=== PATIENT | female | born 1980 | race Caucasian/White ===

== ENCOUNTER 2018-05-14 06:25 | Inpatient (IN) | payer BC, OTHER ==
[2018-05-14] MEDS: DEXTROSE 5%-LACTATED RINGERS 1,000 ML IV SCH (06:45)
[2018-05-14 07:25] VITALS: BMI 34.0
[2018-05-14] MEDS ORDERED: OXYTOCIN 20 UNITS in 0.9% NS 40 UNIT/2,000 ML INFUS.BAG IV ONE (07:42)
[2018-05-14] MEDS ORDERED: morphine SULFATE/Preservative Free 0.5 MG/ML (1cc Syringe) ONE (07:46)
[2018-05-14] MEDS ORDERED: DEXAMETHASONE SOD PHOSPHATE 4 MG/1 ML VIAL ONE (07:46)
[2018-05-14] MEDS ORDERED: ePHEDrine SULFATE 50 MG/1 ML AMPULE ONE (07:46)
[2018-05-14] MEDS ORDERED: BUPIVACAINE 0.75% IN DEXTROSE/PF 2ML AMPULE NR ONE (08:05)
[2018-05-14] MEDS ORDERED: OXYTOCIN 10 UNITS/ML VIAL ONE (08:22)
[2018-05-14] MEDS ORDERED: IBUPROFEN 800 MG/8 ML IJ IVPB PRN ×2 (09:51→09:52)
[2018-05-14] MEDS ORDERED: ONDANSETRON 4 MG/2 ML VIAL IVPUSH PRN (09:51)
[2018-05-14] MEDS ORDERED: WITCH HAZEL 50% (TUCKS) 40 PAD/JAR PAD TP PRN (09:51)
[2018-05-14] MEDS ORDERED: METHYLERGONOVINE MALEATE 0.2 MG/1 ML AMP IM PRN (09:51)
[2018-05-14] MEDS ORDERED: ACETAMINOPHEN 1000 MG/100 ML VIAL (NON FORMULARY) IVPB PRN (09:52)
[2018-05-14] MEDS ORDERED: CITRIC ACID/SODIUM CITRATE 30 ML UNIT-DOSE CUP PO ONE (09:54)
[2018-05-14] MEDS: ENOXAPARIN NA (PORCINE) 40 MG/0.4 ML DISP.SYRIN SQ SCH (10:00)
[2018-05-14] MEDS ORDERED: CEFAZOLIN 1 GM in DEXTROSE 5%-WATER - 50 ML IVPB SCH (10:00)
--- NOTE | 2018-05-14 10:05 | HP ---
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: Alzheimer's, CVA, Dementia, Migraine, Multiple Sclerosis, Peripheral Neuropathy, Parkinson's, Seizure, Syncope, TIA, Vertigo, Other Cardiovascular: No: AFIB, Aneurysm, Aortic Insufficiency, Aortic Stenosis, CAD, CHF, Deep Vein Thrombosis, HTN, Hyperlipdemia, DE, Mitral Insufficiency, Mitral Stenosis, Murmur, Pulmonary Hypertension, Other Pulmonary: No: Asthma, Bronchitis, Cancer, COPD, O2 Dependent, Pneumonia, Previously Intubated, Pulmonary Embolus, Pulmonary Fibrosis, Sleep Apnea, Other Gastrointestinal: No: Ascites, Cancer, Constipation, Crohn's Disease, Diverticulitis, Diverticulosis, Esophageal Varices, Gastritis, GERD, GI Bleed, Hemorrhoids, Hiatal Hernia, Inflamatory Bowel Disease, Irritable Bowel Disease, Pancreatitis, Peptic Ulcer Disease, Ulcerative Colitis, Other Hepatobiliary: No: Cirrhosis, Cholelithiasis, Cholecystitis, Choledocholithiasis , Hepatitis A, Hepatitis B, Hepatitis C, Other Renal/: No: Renal Failure, Renal Inusuff, BPH, Cancer, Hematuria, Hemodialysis , Neurogenic Bladder, Renal Calculi, UTI, Other Reproductive: No: Ectopic , Endometriosis, Fibroids, PID, Polycystic Ovary Syndrome, Postmenopausal, Other ...: 4 ...Para: 1 ...Term: 1 ...: 0 ...Spon : 1 ...Induced : 1 ...Multiple Gestation: 0 ... Weeks Gestation by Dates: 39 ...EDC by Dates: 05/21/18 ...EDC by Sono: 05/21/18 Heme/Onc: No: Anemia, B12 Deficiency, Bleeding Disorder, Cancer, Current Chemotherapy, Current Radiation Therapy, Hemochromatosis, Hypercoaguable State, Myeloproliferative Synd, Sickle Cell Disease, Sickle Cell Trait, Thrombocytopenia, Other Infectious Disease: No: AIDS, C-Diff, Herpes Zoster, HIV, MRSA, STD's, Tuberculosis, VREF, Other Psych: No: Addictions, Anxiety, Bipolar, Depression, Panic, Psychosis, Schizophrenia, Other Musculoskeletal: No: Bursitis, Chronic low back pain, Hemiparesis, Hemiplegia, Osteoarthritis, Paraplegia, Other Rheumatology: No: Fibromyalgia, Gout, Lupus, Rheumatoid Arthritis, Sarcoidosis, Vasculitis, Other ENT: No: Allergic Rhinitis, Sinusitis, Other Endocrine: No: Concho's Disease, Avoca's Disease, Diabetes Insipidus, Diabetes Mellitus, Hyperparathyroidism, Hyperthyroidism, Hypothyroidism, Osteopenia, SIADH, Other Dermatology: No: Basal Cell, Cellulitis, Eczema, Melanoma, Psoriasis, Squamous Cell, Other - Past Surgical History Past Surgical History: Yes: Hx Myomectomy: No Hx Transabdominal Cerclage: No - Smoking History Smoking history: Never smoked Have you smoked in the past 12 months: No - Alcohol/Substance Use Hx Alcohol Use: No History of Substance Use: reports: None - Social History Usual Living Arrangement: Yes: With Spouse, With Child ADL: Independent Occupation: Teacher History of Recent Travel: No Home Medications - Allergies Allergies/Adverse Reactions: Allergies Allergy/AdvReac Type Severity Reaction Status Date / Time No Known Allergies Allergy Verified 01/04/16 20:33 - Home Medications Home Medications: Ambulatory Orders Vitamins (Sjr) - 1 tab PO DAILY 01/05/16 Ibuprofen [Motrin -] 600 mg PO TID #90 tablet 01/07/16 Family Disease History - Family Disease History Family History: Unremarkable Review of Systems - Review of Systems Constitutional: reports: No Symptoms Eyes: reports: No Symptoms HENT: reports: No Symptoms Neck: reports: No Symptoms Cardiovascular: reports: No Symptoms Respiratory: reports: No Symptoms Gastrointestinal: reports: No Symptoms Genitourinary: reports: No Symptoms Breasts: reports: No Symptoms Reported Musculoskeletal: reports: No Symptoms Integumentary: reports: No Symptoms Neurological: reports: No Symptoms Endocrine: reports: No Symptoms Hematology/Lymphatic: reports: No Symptoms Psychiatric: reports: No Symptoms Pain Intensity: 0 Physical Exam - Maternity Vital Signs: Vital Signs Temperature 98.6 F 05/14/18 07:14 Pulse Rate 103 H 05/14/18 07:14 Respiratory Rate 20 05/14/18 07:14 Blood Pressure 103/70 05/14/18 07:14 O2 Sat by Pulse Oximetry (%) Constitutional: Yes: Well Nourished, No Distress, Calm Eyes: Yes: WNL, Conjunctiva Clear HENT: Yes: WNL, Atraumatic, Normocephalic Neck: Yes: WNL, Supple, Trachea Midline Cardiovascular: Yes: WNL, Regular Rate and Rhythm Lungs: Clear to auscultation, Normal air movement - Abdominal Exam/OB Fundal Height: 40 Number of Fetuses: Single Presentation: Vertex Contractions: No Monitor Mode: External Heart Rate (range): 140 Heart Rate Location: Midline Category: I Accelerations: Non-Uniform Decelerations: None - Vaginal Exam/OB Vaginal Bleediing: No Amniotic Membrane Status: Intact Presentation: Vertex/Position - Physical Exam Musculoskeletal: Yes: WNL Extremities: Yes: WNL Edema: Yes Edema: LLE: Trace, RLE: Trace Integumentary: Yes: WNL Deep Tendon Reflex Grade: Normal +2 ...Motor Strength: WNL Psychiatric: Yes: WNL, Alert, Oriented Hemorrhage Risk Assessment - Risk Factors Medium Risk Factors: Yes: None High Risk Factors: Yes: None Risk Score: 1 Risk Level: Medium Risk Imaging - Results Ultrasound: Report Reviewed Assessment/Plan 38yo P1 with at EGA 39wk admitted for repeat C/S. We discussed the risks and benefits of C/S at length, including but not limited to scarring, pain , bleeding, infection, injury to underlying organs and structures, need for additional surgery to repair/treat any problems or complications, complications/injuries, etc. The pt verbalized her understanding and requested to proceed with surgery. The pt is aware that all surgeries have risks and no guarantees can be provided.
--- NOTE | 2018-05-14 10:24 | OP ---
Operative Note - Note: Operative Date: 05/14/18 Pre-Operative Diagnosis: at 39w with prior C/S Operation: Repeat LT C/S Findings: Live baby boy in oblique presentation, delivered as vtx. Clear amniotic fluid. Normal uterus, tubes, and ovaries. 9/9 Post-Operative Diagnosis: Same as Pre-op Surgeon: Kip Martinez Associate Programmer Analyst: Guerita Galeas Anesthesiologist/AGRISCIENCE INSTRUCTOR: Rachele Gonzalez Anesthesia: Spinal Specimens Removed: Placenta Estimated Blood Loss (mls): 700 Drains & Tubes with Location: Ortiz cath Drains, Volume Out (mls): 200 Blood Volume Replaced (mls): 0 Fluid Volume Replaced (mls): 2,700 Operative Report Dictated: Yes
[2018-05-14] MEDS ORDERED: OXYTOCIN 20 UNITS in 0.9% NS 20 UNIT/1,000 ML INFUS.BAG IV ONE (10:38)
[2018-05-14] MEDS: OXYTOCIN 20 UNITS in 0.9% NS 20 UNIT/1,000 ML INFUS.BAG IV SCH ×2 (10:56→18:08)
[2018-05-14] MEDS: PRENATAL VITAMINS W/ FOLIC ACID TABLET (FP) PO SCH (10:57)
[2018-05-14] MEDS ORDERED: TUBERCULIN PPD 5 TU/0.1ML SYRINGE (IN PATIENT USE ONLY) ID ONE (12:00)
[2018-05-14] MEDS: CEFAZOLIN 1 GM in DEXTROSE 5%-WATER - 50 ML IVPB SCH (15:50)
--- NOTE | 2018-05-14 19:53 | OP ---
DATE OF OPERATION: 05/14/2018 PREOPERATIVE DIAGNOSES: at estimated gestational age of 39 weeks, previous section, maternal obesity complicating of third trimester, advanced maternal age. POSTOPERATIVE DIAGNOSES: at estimated gestational age of 39 weeks, previous section, maternal obesity complicating of third trimester, advanced maternal age, delivered. PROCEDURE: Repeat low transverse section via Pfannenstiel skin incision, revision of the prior keloid surgical scar. SURGEON: Kip Martinez MD SCREWMAKER AUTOMATIC: Guerita Galeas MD ANESTHESIOLOGIST: Rachele Gonzalez MD ANESTHESIA: Spinal. COMPLICATIONS: None. PATHOLOGY: Placenta and keloid scar. FINDINGS: Live baby boy in oblique presentation with head on maternal left, converted to vertex without complications. Clear amniotic fluid. Normal uterus, fallopian tubes, and ovaries bilaterally. Apgars 9 and 9. Baby's weight is 8 pounds and 3 ounces. ESTIMATED BLOOD LOSS: 700 mL URINE OUTPUT: 200 mL INTRAVENOUS FLUIDS: 2700 mL DESCRIPTION OF PROCEDURE: The patient was met preoperatively. Risks, benefits, and alternatives of surgery were discussed in details. All questions were answered. The patient was brought to the OR with the IV running. She was placed on the surgical table in the sitting position. The spinal anesthesia was achieved without difficulty. The patient was then placed in a supine position with a leftward tilt. She was prepped and draped in the usual sterile fashion. A Ortiz catheter was left to drain to gravity. The patients then proceeded with the section. The prior scar from a previous Pfannenstiel incision was noted to be keloid, and it was excised. The incision was then taken down to the level of fascia. The fascia was incised in the midline, and the incision was extended bilaterally using Morton scissors. The fascia was dissected away from the rectus muscles superiorly and inferiorly using sharp dissection. The rectus muscles were in the midline. The peritoneum was identified and entered sharply. The peritoneal incision was then extended superiorly and inferiorly using Metzenbaum scissors. The bladder was dissected away from the lower uterine segment using sharp dissection. The bladder was reflected downwards. The uterus was incised transversely in the lower uterine segment. The incision was extended bilaterally using bandage scissors. The baby was found to be in oblique lie with the head on maternal left. The baby was converted to vertex presentation and delivered without complications. There was a nuchal cord noted wrapped around once, which was released without difficulty. The baby began crying spontaneously. The umbilical cord was clamped and cut. The baby was handed to the waiting quality assurance coordinator. The placenta was delivered manually and without complications. The uterus was then cleared of all clots and debris using moist laparotomy laps. The uterine incision was repaired using a 0 Biosyn suture with a running locking stitch. Good hemostasis was noted. The uterine incision was then imbricated using a 0 Biosyn suture with good hemostasis. The bladder peritoneum was approximated using a 0 Biosyn suture with good hemostasis and approximation. The operative site was irrigated using copious amounts of normal saline. Once the saline was aspirated, good hemostasis was confirmed. The abdominal peritoneum was then closed using a 2-0 chromic suture. The rectus muscles were approximated using several interrupted 2-0 chromic sutures. The fascia was closed with a 0 Vicryl suture with good hemostasis and approximation. The subcutaneous adipose tissues and Pavel fascia were approximated using several interrupted 0 Vicryl sutures. The skin was closed using a 4-0 Vicryl suture with good hemostasis and approximation. Sponge, lap, and instrument counts were correct. The patient was transferred to recovery room in stable condition and awake. Ana [id number]
[2018-05-15] MEDS ORDERED: DEXTROSE 5%-WATER - 50 ML IVPB ONE (00:11)
[2018-05-15] MEDS ORDERED: ceFAZolin SODIUM 1 GM VIAL ONE (00:11)
[2018-05-15] MEDS: CEFAZOLIN 1 GM in DEXTROSE 5%-WATER - 50 ML IVPB SCH ×2 (00:19→08:07)
[2018-05-15 08:14] LABS: BASO % 0.3 % (0-2.0); EOS % 0.5 % (0-4.5); HEMATOCRIT 28.7 % (32.4-45.2); HEMOGLOBIN 9.2 GM/dL (10.7-15.3); LYMPH % 13.4 % (8-40); MCH 23.4 pg (25.7-33.7); MCHC 32.1 g/dl (32.0-36.0); MEAN CELL VOLUME 72.9 fl (80-96); MEAN PLT VOLUME 9.5 fl (7.5-11.1); MONO % 6.1 % (3.8-10.2); NEUT % 79.7 % (42.8-82.8); PLATELET COUNT 211 K/MM3 (134-434); RBC 3.94 M/mm3 (3.60-5.2); RDW 15.3 % (11.6-15.6); WHITE BLOOD COUNT 12.5 K/mm3 (4.0-10.0)
[2018-05-15] MEDS: PRENATAL VITAMINS W/ FOLIC ACID TABLET (FP) PO SCH (09:21)
[2018-05-15] MEDS: SIMETHICONE 80 MG TAB.CHEW (FP) PO PRN ×3 (09:21→20:59)
[2018-05-15] MEDS: oxyCODONE HCL 5 MG TABLET PO PRN ×3 (09:22→20:59)
[2018-05-15] MEDS: IBUPROFEN 600 MG TABLET (FP) PO PRN ×3 (09:22→21:01)
[2018-05-15] MEDS: ENOXAPARIN NA (PORCINE) 40 MG/0.4 ML DISP.SYRIN SQ SCH (09:22)
[2018-05-15] MEDS ORDERED: BISACODYL 10 MG SUPP.RECT RC PRN (09:51)
--- NOTE | 2018-05-15 11:05 | PN ---
Post Progress Note - Subjective Subjective: no complains, ambulating Post Day: 1 Type of Delivery: Repeat C/S Vital Signs: Vital Signs Temperature 98.1 F 05/15/18 08:33 Pulse Rate 79 05/15/18 08:33 Respiratory Rate 20 05/15/18 08:33 Blood Pressure 96/69 05/15/18 08:33 O2 Sat by Pulse Oximetry (%) 100 05/14/18 10:35 Breast Exam: Yes: Soft Uterus: Yes: Fundus Firm Incision: Yes: Dressing dry and intact Abdomen/GI: Yes: Abdomen soft, Passing flatus Lochia: Yes: Rubra Lochia, amount: Small Extremities: Yes: Calves non-tender Perineum: Yes: Intact Activity: Ambulating - Labs Labs: CBC WBC 12.5 K/mm3 (4.0-10.0) H 05/15/18 07:15 RBC 3.94 M/mm3 (3.60-5.2) 05/15/18 07:15 Hgb 9.2 GM/dL (10.7-15.3) L 05/15/18 07:15 Hct 28.7 % (32.4-45.2) L 05/15/18 07:15 MCV 72.9 fl (80-96) L 05/15/18 07:15 MCH 23.4 pg (25.7-33.7) L 05/15/18 07:15 MCHC 32.1 g/dl (32.0-36.0) 05/15/18 07:15 RDW 15.3 % (11.6-15.6) 05/15/18 07:15 Plt Count 211 K/MM3 (134-434) 05/15/18 07:15 MPV 9.5 fl (7.5-11.1) 05/15/18 07:15 Absolute Neuts (auto) 10.0 # 05/15/18 07:15 Neutrophils % 79.7 % (42.8-82.8) 05/15/18 07:15 Lymphocytes % 13.4 % (8-40) 05/15/18 07:15 Monocytes % 6.1 % (3.8-10.2) 05/15/18 07:15 Eosinophils % 0.5 % (0-4.5) 07/24/18 07:15 Basophils % 0.3 % (0-2.0) 05/15/18 07:15 Nucleated RBC % 0 % (0-0) 05/15/18 07:15 Assessment/Plan 38yo P2 s/p Repeat c/section VSS, Afebrile, H/H stable s/p RhoGam this admission Baby for circumcision continue routine care
--- NOTE | 2018-05-15 15:10 | PN ---
Progress Note (short form) - Note Progress Note: Anesthesia postop note 38 y/o F s/p spinal anesthesia for section, IT duramorph POD#1, vss, aaox3, sensory motor intact distally, pain well controlled. No anesthesia complications.
[2018-05-16] MEDS: oxyCODONE HCL 5 MG TABLET PO PRN ×3 (08:15→20:44)
[2018-05-16] MEDS: IBUPROFEN 600 MG TABLET (FP) PO PRN ×3 (08:16→20:45)
[2018-05-16] MEDS: SIMETHICONE 80 MG TAB.CHEW (FP) PO PRN ×3 (08:17→20:44)
--- NOTE | 2018-05-16 08:54 | PN ---
Post Progress Note - Subjective Subjective: No complaints Post Day: 2 Type of Delivery: Repeat C/S Vital Signs: Vital Signs Temperature 98.4 F 05/16/18 07:10 Pulse Rate 78 05/16/18 07:10 Respiratory Rate 20 05/16/18 07:10 Blood Pressure 123/73 05/16/18 07:10 O2 Sat by Pulse Oximetry (%) 100 05/14/18 10:35 Breast Exam: Yes: Soft Uterus: Yes: Fundus Firm, Fundus below umbilicus, Non-tender Incision: Yes: Sutures intact Abdomen/GI: Yes: Abdomen soft, Passing flatus, Tolerating PO Lochia: Yes: Rubra Lochia, amount: Small Extremities: Yes: Calves non-tender Perineum: Yes: Intact Activity: Ambulating - Labs Labs: CBC WBC 12.5 K/mm3 (4.0-10.0) H 05/15/18 07:15 RBC 3.94 M/mm3 (3.60-5.2) 05/15/18 07:15 Hgb 9.2 GM/dL (10.7-15.3) L 05/15/18 07:15 Hct 28.7 % (32.4-45.2) L 05/15/18 07:15 MCV 72.9 fl (80-96) L 05/15/18 07:15 MCH 23.4 pg (25.7-33.7) L 05/15/18 07:15 MCHC 32.1 g/dl (32.0-36.0) 05/15/18 07:15 RDW 15.3 % (11.6-15.6) 05/15/18 07:15 Plt Count 211 K/MM3 (134-434) 05/15/18 07:15 MPV 9.5 fl (7.5-11.1) 05/15/18 07:15 Absolute Neuts (auto) 10.0 # 05/15/18 07:15 Neutrophils % 79.7 % (42.8-82.8) 05/15/18 07:15 Lymphocytes % 13.4 % (8-40) 05/15/18 07:15 Monocytes % 6.1 % (3.8-10.2) 05/15/18 07:15 Eosinophils % 0.5 % (0-4.5) 05/15/18 07:15 Basophils % 0.3 % (0-2.0) 05/15/18 07:15 Nucleated RBC % 0 % (0-0) 05/15/18 07:15 Assessment/Plan 38yo P2 s/p repeat LT C/S, doing well stable, afebrile. care instructions reviewed. Continue routine postop care. Ambulation encouraged.
--- NOTE | 2018-05-16 08:57 | DS ---
Physical Exam-GLOBAL LOGISTICS MANAGER Vital Signs: Vital Signs Temperature 98.4 F 05/16/18 07:10 Pulse Rate 78 05/16/18 07:10 Respiratory Rate 20 05/16/18 07:10 Blood Pressure 123/73 05/16/18 07:10 O2 Sat by Pulse Oximetry (%) 100 05/14/18 10:35 Constitutional: Yes: Well Nourished, No Distress, Calm Eyes: Yes: WNL, Conjunctiva Clear HENT: Yes: WNL, Atraumatic, Normocephalic Neck: Yes: WNL, Supple, Trachea Midline Cardiovascular: Yes: WNL, Regular Rate and Rhythm Respiratory: Yes: WNL, Regular, CTA Bilaterally Gastrointestinal: Yes: WNL, Normal Bowel Sounds, Soft, Abdomen, Obese ...Rectal Exam: Yes: Deferred Renal/: Yes: WNL ....Post : Yes: Uterus firm, Uterus non-tender Breast(s): Yes: WNL Musculoskeletal: Yes: WNL Extremities: Yes: WNL Edema: Yes Edema: LLE: Trace, RLE: Trace Integumentary: Yes: WNL Wound/Incision: Yes: Clean/Dry, Well Approximated, Sutures Intact, Steri Strips , Open to air Neurological: Yes: WNL, Alert, Oriented ...Motor Strength: WNL Psychiatric: Yes: WNL, Alert, Oriented Labs: CBC, BMP 05/15/18 07:15 Delivery - Delivery Section: Repeat, Low Flap Transverse Type of Anesthesia: Spinal Episiotomy/Laceration: None EBL (cc): 700 Delivery, Single - Stages of Labor Date of Delivery: 05/14/18 Time of Delivery: 08:44 Time Placenta Delivered: 08:45 Placenta: Yes: Spontaneous, Normal Configuration - Condition of Infant Supervisor Order Takers/Gluing Machine Offbearer Present: Yes Name: Gunjan Elizabeth Gender: Male Weight: 3.714 kg Position: OA Total Hours ROM (Hrs/Mins): 3min - 1 Minute Total Score: 9 5 Minutes Total Score: 9 - Feeding Plan Initial Plan: Elected not to breastfeed exclusively throughout hospitalization Discharge Summary Reason For Visit: ADMIT C SECTION Prior C/S Procedures: Principal: Repeat LT C/S Hospital Course: Normal recovery Condition: Good - Instructions Diet, Activity, Other Instructions: Physical activity Resume your normal everyday activity as tolerated no heavy lifting or exercise until seen by your surgeon. You may walk unlimited phillip of and climb stairs. You may resume driving the car when you feel safe and comfortable behind the wheel. No sexual activity as instructed. Wound care If you have a bandage, leave it on, and keep dry for 48-72 hours. After that time discard the outer bandage. If they are tapes on the skin under the out of bandage leave them in place. They will peel off in the next 7 to 10 days. Do Not Peel them off. You may shower the day after surgery. If there are tapes present on the skin, you may shower over them. Diet There are no dietary restrictions. Eat healthy, high-fiber foods. Drink 6 to 8 glasses of liquid each day. This will assist in keeping your bowels are regular. Pain management You may take Tylenol or acetaminophen or Ibuprofen (for example, Motrin, Advil etc.) from my pain prescription medication is ordered should be taken as prescribed for moderate to severe pain. Call MD for any of the following: Severe pain not relieved by medication Fever of 101 or higher Excessive bleeding or drainage on dressing Inability to urinate Referrals: Kip Martinez MD [Staff Physician] - Disposition: HOME - Home Medications Comprehensive Discharge Medication List: Ambulatory Orders Vitamins (Sjr) - 1 tab PO DAILY 01/05/16 Ibuprofen [Motrin -] 600 mg PO TID #90 tablet 01/07/16 Oxycodone HCl/Acetaminophen [Percocet 5-325 mg Tablet -] 1 - 2 tab PO Q6H PRN # 20 tab MDD 8 05/16/18
[2018-05-16] MEDS: ENOXAPARIN NA (PORCINE) 40 MG/0.4 ML DISP.SYRIN SQ SCH (09:02)
[2018-05-16] MEDS: PRENATAL VITAMINS W/ FOLIC ACID TABLET (FP) PO SCH (09:02)
[2018-05-16] MEDS: DEXTROSE 5%-LACTATED RINGERS 1,000 ML IV SCH ×2 (18:56→18:57)
[2018-05-16] MEDS: OXYTOCIN 20 UNITS in 0.9% NS 20 UNIT/1,000 ML INFUS.BAG IV SCH (18:57)
[2018-05-17 00:28] VITALS: PULSE 87; TEMP 97.9
--- NOTE | 2018-05-17 00:58 | PN ---
Post Progress Note - Subjective Subjective: Patient without acute complaints. Reports tolerating oral intake without nausea or vomiting. Ambulating without dizziness. Denies fevers or chills. Pain well controlled with oral pain medication. No . Passing flatus. Post Day: 3 Type of Delivery: Repeat C/S Vital Signs: Vital Signs Temperature 97.9 F 05/16/18 22:00 Pulse Rate 87 05/16/18 22:00 Respiratory Rate 18 05/16/18 22:00 Blood Pressure 131/84 05/16/18 22:00 O2 Sat by Pulse Oximetry (%) 100 05/14/18 10:35 Breast Exam: Yes: Engorged Uterus: Yes: Fundus Firm, Fundus below umbilicus Incision: Yes: Sutures intact. No: Redness, Oozing Abdomen/GI: Yes: Abdomen soft, Passing flatus, Tolerating PO. No: Abdominal Distention, Tender Lochia: Yes: Serosa Lochia, amount: Small Extremities: Yes: Calves non-tender. No: Edema Activity: Ambulating - Labs Labs: CBC WBC 12.5 K/mm3 (4.0-10.0) H 05/15/18 07:15 RBC 3.94 M/mm3 (3.60-5.2) 05/15/18 07:15 Hgb 9.2 GM/dL (10.7-15.3) L 05/15/18 07:15 Hct 28.7 % (32.4-45.2) L 05/15/18 07:15 MCV 72.9 fl (80-96) L 05/15/18 07:15 MCH 23.4 pg (25.7-33.7) L 05/15/18 07:15 MCHC 32.1 g/dl (32.0-36.0) 05/15/18 07:15 RDW 15.3 % (11.6-15.6) 05/15/18 07:15 Plt Count 211 K/MM3 (134-434) 05/15/18 07:15 MPV 9.5 fl (7.5-11.1) 05/15/18 07:15 Absolute Neuts (auto) 10.0 # 05/15/18 07:15 Neutrophils % 79.7 % (42.8-82.8) 05/15/18 07:15 Lymphocytes % 13.4 % (8-40) 05/15/18 07:15 Monocytes % 6.1 % (3.8-10.2) 05/15/18 07:15 Eosinophils % 0.5 % (0-4.5) 05/15/18 07:15 Basophils % 0.3 % (0-2.0) 05/15/18 07:15 Nucleated RBC % 0 % (0-0) 05/15/18 07:15 Assessment/Plan 38 yo POD # 3 s/p repeat CD, afebrile, vital signs stable, doing well 1. Patient stable for discharge home today. 2. Patient encouraged to contact MD for: - Severe pain not controlled by oral pain medication - Fevers or chills - Nausea or vomiting, intolerance of oral intake - Incision redness, tenderness or discharge 3. Patient to follow up in office in 1-2 weeks for incision check, 4-6 weeks for visit
[2018-05-17] MEDS: SIMETHICONE 80 MG TAB.CHEW (FP) PO PRN (04:07)
[2018-05-17] MEDS: oxyCODONE HCL 5 MG TABLET PO PRN (04:07)
[2018-05-17] MEDS: IBUPROFEN 600 MG TABLET (FP) PO PRN (04:07)
[2018-05-17 08:15] LABS: BASO % 0.2 % (0-2.0); EOS % 1.9 % (0-4.5); HEMATOCRIT 28.1 % (32.4-45.2); HEMOGLOBIN 9.4 GM/dL (10.7-15.3); LYMPH % 14.9 % (8-40); MCH 24.2 pg (25.7-33.7); MCHC 33.5 g/dl (32.0-36.0); MEAN CELL VOLUME 72.3 fl (80-96); MEAN PLT VOLUME 9.3 fl (7.5-11.1); MONO % 5.4 % (3.8-10.2); NEUT % 77.6 % (42.8-82.8); PLATELET COUNT 192 K/MM3 (134-434); RBC 3.88 M/mm3 (3.60-5.2); RDW 15.1 % (11.6-15.6); WHITE BLOOD COUNT 10.4 K/mm3 (4.0-10.0)
[2018-05-17] MEDS: ENOXAPARIN NA (PORCINE) 40 MG/0.4 ML DISP.SYRIN SQ SCH (09:17)
[2018-05-17] MEDS: PRENATAL VITAMINS W/ FOLIC ACID TABLET (FP) PO SCH (09:17)
[2018-05-17 12:08] VITALS: BP 128/75
--- NOTE | 2018-05-23 13:31 | PATH ---
Surgical Pathology Report Patient Name: JOSSELYN COOK Med. Rec. #: [id number] /Age/Gender: 1980 (Age: 38) / F Account: [id number] Location: [facility] OBS/PHARMACY TECH Taken: 05/14/2018 Received: 05/15/2018 Reported: 05/18/2018 Physicians: Kip Martinez M.D. Specimen(s) Received A: PLACENTA B: SCAR TISSUE Clinical History 40.1 weeks gestation, history of abnormal Pap, sinus surgery 1998 Final Diagnosis A. PLACENTA: THIRD TRIMESTER PLACENTA. TRIVASCULAR CORD. MEMBRANES WITH NO DIAGNOSTIC ABNORMALITIES. B. SCAR TISSUE, EXCISION: SEGMENT OF SKIN WITH KELOID. Electronically Signed Shailesh Perkins M.D. Gross Description A. The specimen is received fresh labeled placenta and is a 564 gram, 16.0 x 16.0 x 2.9 cm. placenta with attached membranes and umbilical cord. The attached membranes are maza, translucent with focal opacities and insert marginally. The umbilical cord measures 38 cm. in length and averages 1.0 cm. in diameter. The cord inserts centrally. No true knots or strictures are identified. Cut surface of the umbilical cord reveals 3 vessels. The surface is kenny-blue with minimal fibrin deposition and appropriate caliber vessels. The maternal surface is red-brown with focal defects. Sectioning reveals red-brown, spongy parenchyma. No lesions are identified. In Flight Technician sections are submitted in three cassettes as follows: 1- membrane rolls and umbilical cord; 2-3- full thickness sections of placenta. B. Received in formalin labeled "scar tissue," is a 10.0 x 0.8 cm maza, elliptical, unoriented portion of skin excised to depth of 1.5 cm. The epidermal surface displays a central, linear, well-healed scar. In Flight Technician sections are submitted in one cassette. 05/17/201805/17/2018
== END 2018-05-17 14:35 | disposition home or self-care (01) | DRG 766 ==
LOC: JLDR 06:25 → J3W 11:09
PROVIDERS: ADMIT Obstetrics & Gynecology; ATTEND Obstetrics & Gynecology
PROC: 10D00Z1 Extraction of Products of Conception, Low, Open Approach (ICD-10-PCS; principal; 2018-05-14)
DX: O34.211 Maternal care for low transverse scar from previous cesarean delivery (principal); O99.824 Streptococcus B carrier state complicating childbirth; Z3A.39 39 weeks gestation of pregnancy; Z37.0 Single live birth; O32.2XX0 Maternal care for transverse and oblique lie, not applicable or unspecified
CPT/HCPCS: 36415; 71046-TC-FY; 85025; 85461; 86850; 86900; 86901; 86999; 88304-TC; 88307-TC